=== PATIENT | male | born 1955 | race Caucasian/White ===

== ENCOUNTER → 2017-02-16 | Day surgery (SDC) | payer OTHER, MEDICARE ==
[~2017-02-16] MED LIST: ASPIRIN81 M2 PO; CIPRO PO; CLOTRIMAZOLE MC; COREG6.25 MG PO; FISH OIL 1,0001 CAP PO; FLOMAX0.4 M1 PO; GLUCOPHAGE500 MG PO; HYDRALAZINE HCL50 MG PO; HYDROCODONE/APA1 T16 PO; LIPITOR40 MG PO; LISINOPRIL10 MG PO; LORTAB 5-325 M1 EACH PO; NEURONTIN300 MG PO; PERCOCET5/325 PO; PROTONIX PO; PROVENTIC INH; QVAR8.7 G1 INH; ROBAXIN500 MG PO; SPIRONOLACTONE50 MG PO; ZOFRAN ODT4 MG/UDTAB PO
--- NOTE | ~2017-02-16 | OR ---
Unit #: [id number] #: [id number] Patient: SHARI MENDOZA [id number] [address] [address] [id number] O MR#: [id number] NAME: SHARI MENDOZA ROOM: Date of Procedure: 02/16/2017 Admission Date: 02/16/2017 Surgeon: Felix Hernandez M.D. : 1955 Attending Physician: Felix Hernandez M.D. Primary Care Physician: Oly Mack M.D. OPERATIVE REPORT PROCEDURE PERFORMED Colonoscopy with snare polypectomy, hemoclip applications, as well as tattooing with submucosal injections. INDICATIONS The patient presented with Cologuard positive test, undergoing colonoscopy for diagnosis. MEDICATIONS Monitored anesthesia. POSTOPERATIVE FINDINGS 1. 4 polyps, one about 1 cm, one about 1.5 and two 6 to 8 mm. They were all snared and sent for histopathology. Larger polyp was hemoclipped as well as tattooed. 2. 19 polyps in rectosigmoid area varying in size from 6 to 10 mm, snared and sent for histopathology together. 3. Prep was poor. PLAN Follow up on the pathology report. Repeat colonoscopy in 3 months to look for any remaining polyps. DESCRIPTION OF PROCEDURE The patient was explained of the procedure, risks, and benefits along with risks, and benefits of anesthesia. He was brought to the endoscopy room. Propofol anesthesia was given. Rectal exam was done, which was normal. Colonoscope was lubricated, passed up the rectum, advanced under direct vision all the way to the cecum. Cecum was identified by ileocecal valve and appendiceal orifice. Multiple polyps were seen as described. The largest polyp sites were hemoclipped and tattooed for future reference. I retroflexed in the rectum, internal hemorrhoids noted also. Gently, the scope was pulled out. He tolerated it well. No major complications were seen. Dictated by... Kaley Thakkar/ashlee TD: 02/16/2017 22:26 Unit #: [id number] #: [id number] Patient: SHARI MENDOZA JOB #: [id number] OPERATIVE REPORT Page 1 of 1 X Felix Hernandez MD PROCEDURE OPERATIVE NOTE
== END | disposition home or self-care (01) ==
LOC: COPS 10:24
DX: D12.3 Benign neoplasm of transverse colon (principal); D12.8 Benign neoplasm of rectum; K64.8 Other hemorrhoids; I10 Essential (primary) hypertension; J44.9 Chronic obstructive pulmonary disease, unspecified; E11.9 Type 2 diabetes mellitus without complications; Z79.82 Long term (current) use of aspirin; Z79.899 Other long term (current) drug therapy; Z90.49 Acquired absence of other specified parts of digestive tract; Z90.89 Acquired absence of other organs
CPT/HCPCS: 82947; 88305; J2250

== ENCOUNTER 2017-02-26 05:23 | Observation (INO) | payer OTHER ==
--- NOTE | ~2017-02-26 | HP ---
Unit #: [id number] #: [id number] Patient: SHARI MENDOZA [id number] [address] [address] [id number] I MR#: [id number] NAME: SHARI MENDOZA. ROOM: 565 Age: 61 Sex: M Admission Date: 02/26/2017 : 1955 Attending Physician: Brittany Guillory M.D. Primary Care Physician: Oly Mack M.D. HISTORY AND PHYSICAL CHIEF COMPLAINT Rectal bleeding. HISTORY OF PRESENTING ILLNESS A 61-year-old morbidly obese male with multiple medical problems including hypertension, hyperlipidemia, COPD, diabetes mellitus type 2, and morbid obesity, came because of rectal bleeding. Patient had a colonoscopy done on February 16, 2017, by Dr. Hernandez, that showed patient had multiple polyps, four polyps in the colon area and 19 polyps in the rectosigmoid area. There varied in size from 6 to 10 mm. They were snared and sent for histopathology. Patient woke up this morning and started having a bowel movement which was just blood flowing through. He had multiple bowel movements with only bleeding. Patient came to the ER and is being admitted to telemetry unit. Patient was feeling very dizzy and he was very tachycardic on admission. He does not complain of nausea or vomiting. He does not complain of any abdominal pain. There was a question of atrial fibrillation in the ER, although EKG shows normal sinus rhythm. PAST MEDICAL HISTORY 1. Hypertension. 2. Hyperlipidemia. 3. Chronic obstructive pulmonary disease. 4. Diabetes mellitus type 2. 5. Tobacco abuse. 6. Morbid obesity. PAST SURGICAL HISTORY 1. Appendectomy. 2. Tonsillectomy. 3. Colonoscopy on February 13, 2017. HOME MEDICATIONS 1. Lipitor 40 mg daily. 2. Spironolactone 50 mg daily. 3. Hydralazine 75 mg 3 times daily. 4. Coreg 3.125 mg daily. 5. Aspirin 81 mg daily. 6. QVAR 2 inhalations twice daily. 7. Neurontin 100 mg 3 times daily. 8. Glucophage 500 mg twice daily. 9. Lisinopril 10 mg daily. ALLERGIES Unit #: [id number] #: [id number] Patient: SHARI MENDOZA No known drug allergies. SOCIAL HISTORY Patient is a smoker. He smokes a half pack per day and has been smoking for a long period of time. He does drink alcohol, not every day, but whenever he drinks he drinks one to two drinks. FAMILY HISTORY Diabetes mellitus in mother and patient's father had COPD. He was a smoker. REVIEW OF SYSTEMS No history of fever, chills, or rigors. No history of chest pain. No history of shortness of breath. He was having some dizzy spells when he had multiple bowel movements. He does not complain of any syncopal episode. No complaint of abdominal pain. No leg swelling. No major skin issues. No history of depression or anxiety. DIAGNOSTIC STUDIES LABORATORY: WBC 13, hemoglobin 14, hematocrit 42, and platelet count of 245,000. Troponin is less than 0.05. PT-INR is 10.5 and 1. Sodium 135, potassium 4.5, chloride 102, BUN 23, and creatinine 1. Liver enzymes are stable. Magnesium 1.6. TSH is 1.9. Glucose is 183. ASSESSMENT Patient is being admitted to telemetry unit with: 1. Rectal bleeding status post colonoscopy on February 16, 2017, with multiple polyps removed in rectosigmoid area. 2. Sinus tachycardia. 3. Hypertension. 4. Diabetes mellitus type 2. 5. Hyperlipidemia. 6. Chronic obstructive pulmonary disease. 7. Tobacco abuse. 8. Morbid obesity. PLAN Admit to telemetry unit. IV fluids are being started and IV Protonix [address] Hernandez has been consulted. Patient will be scheduled for colonoscopy for tomorrow. SCDs are being placed. Dr. Paredes is being consulted to rule out any atrial fibrillation. Because of patient's low blood pressure, blood pressure medications are being held. The plan of care has been discussed with patient, and he does verbalize understanding. Dictated by Kaley Smith TD: 02/26/2017 17:46 JOB #: [id number] Unit #: [id number] #: [id number] Patient: SHARI MENDOZA HISTORY AND PHYSICAL Page 1 of 1 X Brittany Guillory MD HISTORY AND PHYSICAL
--- NOTE | ~2017-02-26 | DS ---
Unit #: [id number] #: [id number] Patient: SHARI MENDOZA [id number] [address] [address] [id number] I MR#: [id number] NAME: SHARI MENDOZA. ROOM: [facility] Age: 61 Sex: M Admission Date: 02/26/2017 : 1955 Discharge Date: 02/27/2017 Attending Physician: Brittany Guillory M.D. Primary Care Physician: Oly Mack M.D. DISCHARGE SUMMARY DISCHARGE DIAGNOSES 1. Rectal bleeding, status post removal of multiple polyps a week ago or so. 2. Blood loss anemia, most likely secondary to gastrointestinal bleed. 3. Sinus tachycardia. 4. Hypotension, which is improved. 5. Diabetes mellitus type 2. 6. Hyperlipidemia. 7. Hypertension. 8. Ejection fraction 55%. 9. Mild to moderate aortic regurgitation. 10. Chronic obstructive pulmonary disease. 11. Tobacco abuse. 12. Morbid obesity. DISCHARGE MEDICATIONS 1. QVAR, two inhalers daily. 2. Neurontin 100 mg three times a day. 3. Glucophage 500 mg b.i.d. 4. Coreg 3.125 mg daily. 5. Lipitor 40 mg q. h.s. 6. Lisinopril 10 mg daily. 7. Please note - hydralazine has been discontinued. 8. Aspirin 81 mg daily. 9. Spironolactone 50 mg daily. 10. Protonix 40 mg daily. 11. Proventil inhaler on a p.r.n. basis. CONSULTATION DURING HOSPITALIZATION 1. Dr. Hernandez - GI services. 2. Dr. Paredes - Cardiology services. LAB WORKUP DURING HOSPITALIZATION Sodium 136, potassium 4.1, chloride 105, BUN 20, creatinine 0.9, glucose 145. Liver enzymes are stable. CBC shows, on discharge, WBC 9.4, hemoglobin 10.3, hematocrit 30.5, platelet count of 181 and MCV 101.7. TSH was 1.94. Troponin less than 0.05. HOSPITAL COURSE Unit #: [id number] #: [id number] Patient: SHARI MENDOZA The patient is a 61-year-old male who was admitted to the hospital with rectal bleeding. The patient had colonoscopy done on February 16, 2017, which shows four polyps in the colon. One was 1 cm, and one about 1.5 and two about 6 to 8 mm, and then there were 19 polyps in the rectosigmoid area varying in size from 6 to 10 mm. They were snared and sent for histopathology. The patient started bleeding on the morning, came to ER. He had multiple bowel movements with only blood. He got concerned, had some dizzy spell so came to ER and was admitted overnight. The patient was given hydration. The patient was hypotensive. Blood pressure medications were held. It has improved a lot. He is feeling much better and does not have any more bleeding. The patient has dropped his hemoglobin but that could be a combination of hydration and some blood loss. Dr. Hernandez has evaluated the patient and no other workup is needed at this time but he will follow with Dr. Hernandez in one week. The patient's hypotension is improved. We are going to discontinue hydralazine at this time. That may need to be restarted. There was a question of atrial fibrillation during ER time. Dr. Paredes was consulted. It is sinus tachycardia. There is no atrial fibrillation at this time. Nothing else needs to be done. The patient's diabetes is under control. Chronic obstructive pulmonary disease is stable. He is being discharged home in stable condition. EXAMINATION ON DISCHARGE Blood pressure is 127/81, respiratory rate 18, pulse is 86, temperature 98.0, oxygen saturation is 100%. CHEST has fair air entry. CVS is regular rhythm. ABDOMEN is soft. No tenderness. DISCHARGE INSTRUCTIONS 1. The patient is being discharged home in stable condition. 2. Follow up with primary care provider in one week. 3. CBC in one week. 4. Follow up with Dr. Hernandez in one week. The patient has verbalized understanding. Dictated by... Kaley Smith TD: 02/28/2017 09:45 JOB #: [id number] Unit #: [id number] #: [id number] Patient: SHARI MENDOZA DISCHARGE SUMMARY Page 1 of 1 X Brittany Guillory MD X DISCHARGE SUMMARY
--- NOTE | ~2017-02-26 | EKG ---
PATIENT: SHARI MENDOZA UNIT #: [id number] Ventricular Rate: 163 BPM Atrial Rate: 113 BPM P-R Interval: 166 ms QRS Duration: 72 ms Q-T Interval: 310 ms QTC Calculation(Bezet): 510 ms P [place]: 70 degrees Calculated R [place]: 23 degrees Calculated T Burke: 78 degrees Diagnosis Line: Sinus tachycardia Diagnosis Line: Low voltage QRS Diagnosis Line: Nonspecific T wave abnormality Diagnosis Line: Abnormal ECG Diagnosis Line: No previous ECGs available Diagnosis Line: Confirmed by ARNOLD MONTOYA MD ([id number]) on Diagnosis Line: 02/26/2017 10:09:46 PM INTERPRETING MD: LULI
--- NOTE | ~2017-02-26 | BMI ---
[facility] Nutrition Therapy DATE: 02/27/17 Patient: SHARI Meyers REJI Physician: SHARON Address: [address] Room/Bed: [address] [place] [address], Zip: [place] [address] Admit Date: 02/26/17 Date of : [birth year] Height: Weight: 274 124.5 HIGH BMI NOTE: DX: 61 y/o male admitted with rectal bleed ANTHROPOMETRICS: Ht: 69", Wt: 124.5 kg, BMI: 40.5 (stage III obese) DIET: NPO (previously on clear liquids) INTERVENTION: Restricted diet, meds/fluids per MD RECOMMENDATIONS: Once medically feasible advance to GI soft diet as tolerated. Once patient is tolerating solid diet change to consistent carb/healthy heart due to PMH and to promote a gradual weight loss towards a healthy BMI range. Respectfully, Lis Sánchez RD, LD [facility] cc: client file
--- NOTE | ~2017-02-26 | CO ---
Unit #: [id number] #: [id number] Patient: SHARI MENDOZA [id number] [address] [address] [id number] I MR#: [id number] NAME: SHARI MENDOZA ROOM: 565 Age: 61 Sex: M Admission Date: 02/26/2017 : 1955 Attending Physician: Brittany Guillory M.D. Primary Care Physician: Oly Mack M.D. CONSULTATION REPORT HISTORY OF PRESENT ILLNESS This is a 61-year-old white male, who presented to the emergency room with rectal bleeding. He had a colonoscopy on 02/16/2017, where he was found to have 19 polyps that were removed by snare polypectomy. He was in his usual state of health until last night when he developed bright red blood rectally. Apparently, this went on most of the night before he eventually came to the emergency room for evaluation. He complained of dizziness and felt like as if he may pass out. He noted himself to have profusely sweating. He denies abdominal discomfort. In the emergency room, he was tachycardiac where his heart rate was up to 160 beats per minute. It was felt the patient had atrial fibrillation. Blood pressure 101/71 mmHg. Hemoglobin is stable at 14.0. He was treated with normal saline IV bolus and oral dose of carvedilol. From a cardiac standpoint, the patient states he was admitted to [facility] several years ago and underwent a stress test, which had to be stopped immediately. No heart catheterization according to the patient. He was told he had congestive heart failure. He has other risk factors for ischemic heart disease includes hypertension, hyperlipidemia, diabetes, nicotine abuse, and obesity. His troponin was negative and he denies any symptoms of angina or dyspnea. No paroxysmal nocturnal dyspnea or orthopnea. PAST MEDICAL HISTORY 1. Stress test at [facility], no details available. 2. Hypertension. 3. Hyperlipidemia. 4. Questionable congestive heart failure. 5. Diabetes mellitus type 2. 6. COPD. 7. Active smoker. 8. Obesity. 9. Colonoscopy on 02/16/2017 with 19 polyps removed by snare polypectomy per Dr. Hernandez. PAST SURGICAL HISTORY 1. Appendectomy. 2. Tonsillectomy. SOCIAL HISTORY The patient is disabled and lives with his sister. He smokes half a pack of cigarettes a day. Drinks alcohol on occasion. Denies illicit drug use. Unit #: [id number] #: [id number] Patient: SHARI MENDOZA FAMILY HISTORY Positive for hypertension, but no coronary artery disease. ALLERGIES No known drug allergies. HOME MEDICATIONS Lipitor 40 mg daily, spironolactone 50 mg daily, hydralazine 75 mg t.i.d., carvedilol 3.125 mg daily, aspirin 81 mg, QVAR two inhalations daily, Neurontin 100 mg t.i.d., Glucophage 500 mg b.i.d., lisinopril 10 mg daily, Proventil inhaled b.i.d. REVIEW OF SYSTEMS CONSTITUTIONAL: Negative for fever or chills. Has no weight gain or weight loss. HEENT: No headache, hearing or vision changes, difficulty with swallowing. Positive for dizziness. CARDIOVASCULAR: Has no symptoms of angina. Denies palpitations. No paroxysmal nocturnal dyspnea or orthopnea. Reports near syncope. RESPIRATORY: Negative for dyspnea, cough, or hemoptysis. GASTROINTESTINAL: No abdominal pain, but reports nausea and hematochezia. No constipation. EXTREMITIES: Negative for lower extremity edema. PHYSICAL EXAMINATION VITAL SIGNS: Blood pressure 101/71, heart rate 86, temperature 97.9. GENERAL: This is an obese 61-year-old white male, who is in no acute distress. NEUROLOGIC: He is awake, alert, and oriented. There are no focal weaknesses. NECK: Trachea is midline. No thyromegaly. No lymphadenopathy. No jugular venous distention. HEART: S1 and S2. Heart sounds are normal. No murmurs. No rubs or clicks. Regular rate and rhythm. LUNGS: Diminished breath sounds both lungs without rales, rhonchi, or wheezes. ABDOMEN: Soft and obese with bowel sounds are present. EXTREMITIES: With trace lower extremity edema. DIAGNOSTIC STUDIES LABORATORY RESULTS: Glucose 178, BUN 23, creatinine 1.0. Sodium 135, potassium 4.5, magnesium 1.6. TSH 1.94. CK-MB less than 1.0. Troponin less than 0.05. White count 13.0, hemoglobin 14.0, hematocrit 42.0, platelet count is 245. CARDIOVASCULAR STUDIES: EKG shows sinus tachycardia, rate of 163 beats per minute with Q-waves noted in the V1 and V2 with T-wave inversion. IMPRESSION 1. Acute lower gastrointestinal bleed. 2. Sinus tachycardia secondary to hypovolemia. 3. Recent colonoscopy with polypectomy. 4. History of hypertension. 5. Hyperlipidemia. 6. Diabetes mellitus, type 2. 7. Chronic heart failure. 8. Chronic obstructive pulmonary disease with continued nicotine abuse. 9. Obesity. Unit #: [id number] #: [id number] Patient: SHARI MENDOZA 10. Hypomagnesemia. PLAN 1. Cardiology was consulted for atrial fibrillation. Rhythm strips shows sinus rhythm. EKG shows sinus tachycardia. There was no evidence of atrial fibrillation. 2. The patient is hypotensive. We will hold all blood pressure medications for now. 3. Obtain 2D echocardiogram to evaluate left ventricular systolic function. 4. No evidence of heart failure on examination. 5. We will supplement magnesium. 6. We will follow the patient with you. Thank you for allowing us to assist with this patient's care. Dictated by... Ernesto Roth/ashlee TD: 02/26/2017 11:32 JOB #: [id number] CC: Oly Mack M.D. [facility] CONSULTATION REPORT Page 1 of 1 X Ziggy Farris APRN CONSULTATION REPORT
--- NOTE | ~2017-02-26 | EKG ---
PATIENT: SHARI MENDOZA UNIT #: [id number] Ventricular Rate: 101 BPM Atrial Rate: 101 BPM P-R Interval: 168 ms QRS Duration: 86 ms Q-T Interval: 348 ms QTC Calculation(Bezet): 451 ms P [place]: 67 degrees Calculated R [place]: 59 degrees Calculated T [place]: 92 degrees Diagnosis Line: Sinus tachycardia Diagnosis Line: Nonspecific ST abnormality Diagnosis Line: Abnormal ECG Diagnosis Line: When compared with ECG of 26-FEB-2017 05:56, Diagnosis Line: Vent. rate has decreased BY 62 BPM Diagnosis Line: Nonspecific T wave abnormality now evident in Diagnosis Line: Lateral leads Diagnosis Line: Confirmed by ARNOLD MONTOYA MD ([id number]) on Diagnosis Line: 02/27/2017 10:41:12 PM INTERPRETING : LULI
[~2017-02-26 05:23] MED LIST changes: -PROTONIX PO
[2017-02-26 06:01] LABS: BASOPHIL# 0.1 X10e3 (0-0.3); BASOPHIL% 0.8 % (0-2.5); EOSINOPHIL# 0.4 X10e3 (0-0.7); LYMPHOCYTE# 3.5 X10e3 (1.0-3.5); LYMPHOCYTE% 27.2 % (17.0-45.0); MEAN CORPUSCULAR HEMOGLOBIN 33.6 PG (28-34); MEAN CORPUSCULAR HGB CONC 33.2 g/dL (30-36); MEAN PLATELET VOLUME 8.5 FL (6.5-11.5); MONOCYTE% 7.3 % (3.0-12.0); NEUTROPHIL% 61.7 % (40-75); PLATELET COUNT 245 X10e3 (140-420); RED BLOOD COUNT 4.16 X10e (3.90-5.60)
[2017-02-26 06:02] LABS: DIFF IND NO
[2017-02-26 06:11] LABS: POC - CKMB <1.0 ng/mL (0.0-7.9); POC - TROPONIN <0.05 ng/mL (<=0.05)
[2017-02-26 06:16] LABS: PARTIAL THROMBOPLASTIN TIME 25.9 SECONDS (23.5-31.3); PROTHROMBIN TIME (PATIENT) 10.5 SECONDS (10.0-11.7)
[2017-02-26 06:30] LABS: BILIRUBIN, DIRECT 0.1 mg/dL (0.0-0.2); BILIRUBIN,INDIRECT 0.5 mg/dL (0.0-0.9); BILIRUBIN,TOTAL 0.6 mg/dL (0.2-2.0); CALCIUM SERUM 9.3 mg/dL (8.4-10.2); GLOM FILT RATE Estimated 80.3 mL/min (>60); MAGNESIUM 1.6 mg/dL (1.6-3.0); POTASSIUM 4.5 mmol/L (3.5-5.1); PROTEIN TOTAL SERUM 6.6 g/dL (6.0-8.3)
[2017-02-27 07:05] LABS: HEMATOCRIT 30.5 % (38.0-50.0); MEAN CELL VOLUME 101.7 FL (83-96); MEAN CORPUSCULAR HEMOGLOBIN 34.4 PG (28-34); MEAN CORPUSCULAR HGB CONC 33.8 g/dL (30-36); MEAN PLATELET VOLUME 8.2 FL (6.5-11.5); RED CELL DISTRIBUTION WIDTH 13.2 % (11.0-15.5); WHITE BLOOD COUNT 9.4 X10e3 (4.0-10.5)
[2017-02-27 07:23] LABS: HEMOGLOBIN 10.3 gm/dL (13.0-16.0)
[2017-02-27 07:57] LABS: ALBUMIN SERUM 3.6 g/dL (3.5-5.0); BILIRUBIN,TOTAL 0.8 mg/dL (0.2-2.0); BUN/CREATININE RATIO 22.22; CALCIUM SERUM 8.6 mg/dL (8.4-10.2); CREATININE SERUM 0.9 mg/dL (0.6-1.4); GLOM FILT RATE Estimated 91.2 mL/min (>60); POTASSIUM 4.1 mmol/L (3.5-5.1); PROTEIN TOTAL SERUM 5.6 g/dL (6.0-8.3)
[2017-02-27] MEDS ORDERED: PROTONIX PO (12:37)
== END 2017-02-27 13:30 | disposition home or self-care (01) | DRG 379 ==
LOC: CED 05:23 → CEDOF 08:34 → CED 09:04 → C5C 13:12
PROVIDERS: Emergency Medicine; Internal Medicine; Physician Assistant Medical
DX: K62.5 Hemorrhage of anus and rectum (principal); D50.0 Iron deficiency anemia secondary to blood loss (chronic); R00.0 Tachycardia, unspecified; I95.9 Hypotension, unspecified; E11.9 Type 2 diabetes mellitus without complications; E78.5 Hyperlipidemia, unspecified; I10 Essential (primary) hypertension; I35.1 Nonrheumatic aortic (valve) insufficiency; J44.9 Chronic obstructive pulmonary disease, unspecified; E66.01 Morbid (severe) obesity due to excess calories; F17.210 Nicotine dependence, cigarettes, uncomplicated; Z79.84 Long term (current) use of oral hypoglycemic drugs; Z83.3 Family history of diabetes mellitus
CPT/HCPCS: 80048; 80053; 80076; 82553; 82947; 83735; 84443; 84484; 85025; 85027; 85610; 85730; 86850; 86900; 86901; 93005; 93306; 96360; 99291; G0378; J1815; J3475